=== PATIENT | male | born 1960 | race Caucasian/White ===

== ENCOUNTER → 2023-01-24 | Day surgery (SDC) | payer BC ==
[~2023-01-24] MED LIST: Flumazenil 0.1 MG/ML 10 ML MDV ONE; Ketamine 200 MG/20 ML MDV ONE; Midazolam 1 MG/ML 2 ML SDV ONE; Propofol 200 MG/20 ML SDV ONE; fentaNYL 50 MCG/ML SDV ONE
[2023-01-24] MEDS: Lactated Ringers 1,000 ML IV SCH (10:54)
== END ==
LOC: CC.SDS 10:30
PROVIDERS: ATTEND Family Medicine
DX: Z12.11 Encounter for screening for malignant neoplasm of colon (principal); K57.30 Diverticulosis of large intestine without perforation or abscess without bleeding; K52.9 Noninfective gastroenteritis and colitis, unspecified; G25.81 Restless legs syndrome; F41.9 Anxiety disorder, unspecified; R06.02 Shortness of breath; M25.561 Pain in right knee; M65.331 Trigger finger, right middle finger; M65.332 Trigger finger, left middle finger; N40.1 Benign prostatic hyperplasia with lower urinary tract symptoms; R35.1 Nocturia; I10 Essential (primary) hypertension; F32.A Depression, unspecified; E78.5 Hyperlipidemia, unspecified; E55.9 Vitamin D deficiency, unspecified; F17.200 Nicotine dependence, unspecified, uncomplicated; Z88.0 Allergy status to penicillin; Z79.899 Other long term (current) drug therapy; Z91.040 Latex allergy status
CPT/HCPCS: 00812; J2250; J2704; J3010; J3490; J7120